=== PATIENT | female | born 1995 | race Caucasian/White ===

== ENCOUNTER 2018-03-17 10:41 | Emergency (ER) | payer OTHER ==
[~2018-03-17] VITALS: Ht 160 cm; Wt 49.9 kg
[2018-03-17 10:51] VITALS: BP 129/78
[2018-03-17] MEDS ORDERED: CYCLOBENZAPRINE10 MG PO (11:27)
== END 2018-03-17 11:38 | disposition home or self-care (01) ==
LOC: M.ERS 10:41
DX: S16.1XXA Strain of muscle, fascia and tendon at neck level, initial encounter (principal); V49.49XA Driver injured in collision with other motor vehicles in traffic accident, initial encounter; Y93.19 Activity, other involving water and watercraft; Y92.89 Other specified places as the place of occurrence of the external cause; Y99.8 Other external cause status